=== PATIENT | female | born 1940 | race Hispanic/Latino ===

== ENCOUNTER → 2018-05-21 | Day surgery (SDC) | payer MEDICARE ==
[~2018-05-21] MED LIST: ASPIR 8181 MG PO; FENTANYL CITRATE/PF 100MCG/2 ML INJ ONE; JANUVIA100 MG PO; LOSARTAN POTAS100 MG PO; METFORMIN HCL500 MG PO; OR PHACO EYE KIT ONE; PRAVASTATIN SOD20 MG PO; PREOP PHACO EYE KIT ONE; SERTRALINE HCL50 MG PO; TRAZODONE HCL50 MG PO; ULTRACET TABLE1 EACH PO
== END | disposition home or self-care (01) ==
LOC: OR 13:58
PROVIDERS: ATTEND Ophthalmology
DX: H25.12 Age-related nuclear cataract, left eye (principal); M19.90 Unspecified osteoarthritis, unspecified site; I10 Essential (primary) hypertension; E11.9 Type 2 diabetes mellitus without complications; I45.10 Unspecified right bundle-branch block; Z79.82 Long term (current) use of aspirin; Z79.84 Long term (current) use of oral hypoglycemic drugs
CPT/HCPCS: 36415; 66984; 82948; V2632